=== PATIENT | female | born 1960 | race Caucasian/White ===

== ENCOUNTER 2019-01-19 12:05 | Emergency (ER) | payer OTHER ==
--- NOTE | 2019-01-19 12:25 | UC ---
Skin Complaint HPI - History of Current Complaint Time Seen by Provider: 01/19/19 12:09 Stated Complaint: ABDOMINAL SKIN - TICK - Allergy/Home Medications Allergies/Adverse Reactions: Allergies Allergy/AdvReac Type Severity Reaction Status Date / Time MS Aspirin [Aspirin] AdvReac upset Verified 03/13/13 10:12 stomach PMH/Surg Hx/FS Hx/Imm Hx - Surgical History Surgical History: None - Social History Substance Use Type: None Discharge - Discharge Plan Referrals: No Primary Care Phys,NOPCP [Primary Care Provider] -
[2019-01-19 12:27] VITALS: BP 98/64
--- NOTE | 2019-01-19 12:40 | UC ---
General HPI - HPI Summary HPI Summary: PT REMOVED A TICK FROM HER ABDOMEN LAST PM. SHE NOTES IT GOT ON HER THAT SAME NIGHT. SHE IS HERE BECAUSE THE HEAD REMAINS. PT CLEANED THE SITE AFTER REMOVAL LAST PM. PT NOTES SITE IS RED AND SORE. - History of Current Complaint Chief Complaint: Jasmina Stated Complaint: ABDOMINAL SKIN - TICK Time Seen by Provider: 01/19/19 12:09 Hx Obtained From: Patient Pain Intensity: 1 Associated Signs & Symptoms: Negative: Fever - Allergy/Home Medications Allergies/Adverse Reactions: Allergies Allergy/AdvReac Type Severity Reaction Status Date / Time aspirin Allergy See Comment Verified 01/19/19 12:28 PMH/Surg Hx/FS Hx/Imm Hx Previously Healthy: Yes - Surgical History Surgical History: None - Family History Known Family History: Positive: Non-Contributory - Social History Lives: With Family Alcohol Use: Occasionally Substance Use Type: None Smoking Status (MU): Light Every Day Tobacco Smoker Amount Used/How Often: carton per month Review of Systems All Other Systems Reviewed And Are Negative: No Constitutional: Negative: Fever, Fatigue Musculoskeletal: Negative: Arthralgia, Myalgia Physical Exam Triage Information Reviewed: Yes Appearance: Well-Appearing Vital Signs: Initial Vital Signs Temp 98.7 F 01/19/19 12:20 Pulse 83 01/19/19 12:20 Resp 18 01/19/19 12:20 BP 98/64 01/19/19 12:20 Pulse Ox 100 01/19/19 12:20 Vital Signs Reviewed: Yes Neck: Positive: Supple Respiratory: Positive: No respiratory distress Musculoskeletal: Positive: ROM Intact Neurological: Positive: Alert Psychological: Positive: Age Appropriate Behavior Skin Exam: Normal, Other - abrasion upper abdomen with tiny black spec in center. area mildly pink, c/w insect bite but no bullseye. Course/Dx - Course Course Of Treatment: pt already cleaned site. the black spec will work its way out like a sliver and attempts to remove do not outweigh tissue damage from removal. tick on <36 hours and not engorged thus doxycycline not indicated. - Diagnoses Provider Diagnosis: Tick bite of abdominal wall Discharge - Sign-Out/Discharge Documenting (check all that apply): Patient Departure All imaging exams completed and their final reports reviewed: No Studies - Discharge Plan Condition: Stable Disposition: HOME Patient Education Materials: Tick Bite (ED) Referrals: Jourdan Mercado MD [Medical Doctor] - If Needed - Billing Disposition and Condition Condition: STABLE Disposition: Home - Attestation Statements Provider Attestation: I was available for consult. This patient was seen by the CAROLE. The patient was not presented to, seen by, or examined by me. -[place]
== END 2019-01-19 12:46 | disposition home or self-care (01) ==
LOC: UCCORT 12:05
DX: S30.861A Insect bite (nonvenomous) of abdominal wall, initial encounter (principal); W57.XXXA Bitten or stung by nonvenomous insect and other nonvenomous arthropods, initial encounter; Y92.9 Unspecified place or not applicable; Z88.6 Allergy status to analgesic agent; F17.200 Nicotine dependence, unspecified, uncomplicated
CPT/HCPCS: 99201; G0463